=== PATIENT | female | born 1985 | race Two or more races ===

== ENCOUNTER 2016-07-20 17:10 | Emergency (ER) | payer SELFPAY ==
[~2016-07-20] VITALS: Ht 165.1 cm; Wt 79.4 kg
[2016-07-20 18:28] LABS: BILIRUBIN,URINE NEGATIVE (NEG); GLUCOSE,URINE NEGATIVE (NEG); NITRITE,URINE NEGATIVE (NEG); PROTEIN,URINE NEGATIVE (NEG-TRACE)
[2016-07-20 18:40] LABS: BACTERIA,URINE FEW /HPF (0-FEW); RBC,URINE 0 /HPF (0-2); SQUAMOUS EPITHELIAL CELL,UR MOD /LPF
[2016-07-20 18:45] LABS: BASO % 1 % (0-3); EOS % 3 % (0-3); HEMATOCRIT 38.2 % (36.0-47.0); HEMOGLOBIN 12.9 g/dL (12.0-15.5); LYMPH # 3.1 x10^3/uL (1.0-4.8); LYMPH % 55 % (24-48); MEAN CORPUSCULAR HEMOGLOBIN 29 pg (25-35); MEAN CORPUSCULAR HGB CONC 34 g/dL (31-37); MEAN CORPUSCULAR VOLUME 87 fL (79-100); MONO % 9 % (0-9); NEUT % 32 % (31-73); PLATELET COUNT 257 x10^3/uL (140-400); RED BLOOD COUNT 4.39 x10^6/uL (3.50-5.40); WHITE BLOOD COUNT 5.5 x10^3/uL (4.0-11.0)
[2016-07-20] MEDS ORDERED: IV NORMAL SALINE 1000ML BAG 1,000 ML IV ONE (18:45)
[2016-07-20 19:03] LABS: CALCIUM 8.8 mg/dL (8.5-10.1); CREATININE 0.9 mg/dL (0.6-1.0); POTASSIUM 3.9 mmol/L (3.5-5.1)
[2016-07-20 19:09] LABS: ALBUMIN 3.6 g/dL (3.4-5.0); MAGNESIUM 1.9 mg/dL (1.8-2.4); TOTAL BILIRUBIN 0.3 mg/dL (0.2-1.0); TOTAL PROTEIN 7.1 g/dL (6.4-8.2)
[2016-07-20 19:40] VITALS: BP 117/76
[2016-07-20] MEDS ORDERED: NITR100C62 PO (19:43)
--- NOTE | 2016-07-20 19:44 | PHYS DOC ---
Past Medical History Past Medical History: Anxiety, Hypothyroid Additional Past Medical Histor: TACHYCARDIA Past Surgical History: , Tubal ligation Additional Past Surgical Histo: UNKNOWN SX TO LOOK FOR PULMONARY HTN Alcohol Use: Rarely Drug Use: None Adult General Chief Complaint Chief Complaint: NEAR SYNCOPE HPI HPI Patient is a 31 year old female who presents with complaints of lightheadedness for the past 3 days. Patient denies positional symptoms at this time. Patient states that she starts getting very lightheaded at rest. Patient mentioned vertigo symptoms during triage, however patient states that she is having more lightheadedness and feeling like she is going to pass out on my interview. The patient states that she has had history of tachycardia in the past and was on beta tarik medication but stated that she had to be taken off of this due to bradycardia. Patient states that this diagnosis took place in [place]. Patient just recently moved to [place] within the last 3-4 months. Patient does not have a primary physician at this time. Patient states she also has history of anxiety and takes hydroxyzine as needed for symptoms. Patient denies any associated chest pain but states that she has experienced shortness of breath with her symptoms. Patient also states that she feels "shaky all over " at times. Review of Systems Review of Systems Constitutional: Lightheadedness, denies fever or chills [] Eyes: Denies change in visual acuity, redness, or eye pain [] HENT: Denies nasal congestion or sore throat [] Respiratory: Shortness of breath [] Cardiovascular: Near syncope, denies chest pain or edema [] GI: Denies abdominal pain, nausea, vomiting, bloody stools or diarrhea [] : Denies dysuria or hematuria [] Musculoskeletal: Denies back pain or joint pain [] Integument: Denies rash or skin lesions [] Neurologic: Denies headache, focal weakness or sensory changes [] Current Medications Current Medications Current Medications Medications (Trade) Dose Ordered Sig/Bertrand Start Time Stop Time Status Last Admin Dose Admin Sodium Chloride 1,000 ml @ 1,000 mls/hr 1X ONCE 07/20/16 18:45 07/20/16 19:44 DC 07/20/16 18:35 1,000 MLS/HR Allergies Allergies Allergies Coded Allergies Type Severity Reaction Last Updated Verified No Known Drug Allergies 07/20/16 No Physical Exam Physical Exam Constitutional: Alert, afebrile, no acute distress. [] HENT: Normocephalic, atraumatic, bilateral external ears normal, oropharynx moist, no oral exudates, nose normal. [] Eyes: PERRLA, EOMI, conjunctiva normal, no discharge. [] Neck: Normal range of motion, no tenderness, supple, no stridor. [] Cardiovascular:Heart rate regular rhythm, no murmur [] Lungs & Thorax: Bilateral breath sounds clear to auscultation [] Abdomen: Bowel sounds normal, soft, no tenderness, no masses, no pulsatile masses. [] Skin: Warm, dry, no erythema, no rash. [] Back: No tenderness, no CVA tenderness. [] Extremities: No tenderness, no cyanosis, no clubbing, ROM intact, no edema. [] Neurologic: Alert and oriented X 3, normal motor function, normal sensory function, no focal deficits noted. [] Current Patient Data Vital Signs Vital Signs Date Time Temp Pulse Resp B/P (MAP) Pulse Ox O2 Delivery O2 Flow Rate FiO2 07/20/16 19:40 54 19 117/76 (90) 98 Room Air 07/20/16 17:40 98.9 98.9 Lab Values Laboratory Tests Test 07/20/16 16:52 07/20/16 18:10 07/20/16 18:30 POC Urine HCG, Qualitative Hcg negative (Negative) Urine Collection Type Unknown Urine Color Yellow Urine Clarity Clear Urine pH 6.0 Urine Specific Matador 1.025 Urine Protein Negative mg/dL (NEG-TRACE) Urine Glucose (UA) Negative mg/dL (NEG) Urine Ketones (Stick) Negative mg/dL (NEG) Urine Blood Negative (NEG) Urine Nitrite Negative (NEG) Urine Bilirubin Negative (NEG) Urine Urobilinogen Dipstick 1.0 mg/dL (0.2 mg/dL) Urine Leukocyte Esterase Small (NEG) Urine RBC 0 /HPF (0-2) Urine WBC 11-20 /HPF (0-4) Urine Squamous Epithelial Cells Mod /LPF Urine Bacteria Few /HPF (0-FEW) Urine Mucus Mod /LPF White Blood Count 5.5 x10^3/uL (4.0-11.0) Red Blood Count 4.39 x10^6/uL (3.50-5.40) Hemoglobin 12.9 g/dL (12.0-15.5) Hematocrit 38.2 % (36.0-47.0) Mean Corpuscular Volume 87 fL (79-100) Mean Corpuscular Hemoglobin 29 pg (25-35) Mean Corpuscular Hemoglobin Concent 34 g/dL (31-37) Red Cell Distribution Width 13.0 % (11.5-14.5) Platelet Count 257 x10^3/uL (140-400) Neutrophils (%) (Auto) 32 % (31-73) Lymphocytes (%) (Auto) 55 % (24-48) H Monocytes (%) (Auto) 9 % (0-9) Eosinophils (%) (Auto) 3 % (0-3) Basophils (%) (Auto) 1 % (0-3) Neutrophils # (Auto) 1.8 x10^3uL (1.8-7.7) Lymphocytes # (Auto) 3.1 x10^3/uL (1.0-4.8) Monocytes # (Auto) 0.5 x10^3/uL (0.0-1.1) Eosinophils # (Auto) 0.2 x10^3/uL (0.0-0.7) Basophils # (Auto) 0.0 x10^3/uL (0.0-0.2) Sodium Level 142 mmol/L (136-145) Potassium Level 3.9 mmol/L (3.5-5.1) Chloride Level 106 mmol/L (98-107) Carbon Dioxide Level 29 mmol/L (21-32) Anion Gap 7 (6-14) Blood Urea Nitrogen 12 mg/dL (7-20) Creatinine 0.9 mg/dL (0.6-1.0) Estimated GFR (Cockcroft-Gault) 73.0 BUN/Creatinine Ratio 13 (6-20) Glucose Level 94 mg/dL (70-99) Calcium Level 8.8 mg/dL (8.5-10.1) Magnesium Level 1.9 mg/dL (1.8-2.4) Total Bilirubin 0.3 mg/dL (0.2-1.0) Aspartate Amino Transferase (AST) 29 U/L (15-37) Alanine Aminotransferase (ALT) 50 U/L (14-59) Alkaline Phosphatase 52 U/L (46-116) Total Protein 7.1 g/dL (6.4-8.2) Albumin 3.6 g/dL (3.4-5.0) Albumin/Globulin Ratio 1.0 (1.0-1.7) Laboratory Tests 07/20/16 18:30 Laboratory Tests 07/20/16 18:30 EKG EKG Interpreted by me: Heart rate 57, sinus rhythm, normal intervals, normal axis, no acute ST/T-wave abnormalities present [] Radiology/Procedures Radiology/Procedures Not performed [] Course & Med Decision Making Course & Med Decision Making Pertinent Labs and Imaging studies reviewed. (See chart for details) Patient was observed in the emergency department on a ekg monitor with no remarkable events reported. Patient states that she did experience lightheadedness during her emergency department stay on multiple occasions however there was no captured ectopy. Patient was given IV fluids in the emergency department. I did discuss with patient possibility of admission to the hospital for continued monitoring to rule out a tachydysrhythmia. Patient states that she does not want to be admitted the hospital but did agree to follow-up in the next 2 days with cardiology. Patient was found to have urinary tract infection and will be started on Macrobid for treatment. The patient will be referred to Dr. Carter of cardiology for follow-up in 2 days. Advised patient to return emergency department for any worsening symptoms. Patient voiced understanding and in agreement with treatment plan. Dragon Disclaimer Dragon Disclaimer This electronic medical record was generated, in whole or in part, using a voice recognition dictation system. Departure Departure Impression: Primary Impression: Near syncope Additional Impression: Urinary tract infection Disposition: HOME, SELF-CARE Condition: IMPROVED Referrals: NO PCP (PCP) MICHAEL CARTER MD Patient Instructions: Near-Syncope, Urinary Tract Infection Additional Instructions: Follow-up with Dr. Carter of cardiology in 2 days. Return to the emergency department for any worsening symptoms. Scripts Nitrofurantoin Monohyd/M-Cryst (MACROBID 100 MG CAPSULE) 100 Mg Capsule 1 CAP PO BID, #14 CAP Prov: WALDEMAR ENGLISH MD 07/20/16 Problem Qualifiers Additional Impression: Urinary tract infection Urinary tract infection type: site unspecified Hematuria presence: without hematuria Qualified Codes: N39.0 - Urinary tract infection, site not specified WALDEMAR ENGLISH MD Jul 20, 2016 19:44
--- NOTE | 2016-07-21 06:30 | EKG ---
[facility] [address] [place] [address] Test Date: 2016-07-20 Test Time: 18:20:48 Pat Name: AMANDA PATE Department: Room: Gender: F [employer] Gun [employer]: : 1985 Requested By: WALDEMAR ENGLISH Order Number: [id number] Reading MD: Anais Sauceda Measurements Intervals [place] Rate: 57 P: MA: QRS: 12 QRSD: 76 T: 20 QT: 384 QTc: 376 Interpretive Statements SINUS RHYTHM NORMAL EKG RI6.01 Unconfirmed report No previous ECG available for comparison Electronically Signed On 07-24-2016 18:27:03 CDT by Anais Sauceda
== END 2016-07-20 19:49 | disposition home or self-care (01) ==
LOC: ER 17:10
DX: R55 Syncope and collapse (principal); N39.0 Urinary tract infection, site not specified; E03.9 Hypothyroidism, unspecified; F41.9 Anxiety disorder, unspecified; Z98.51 Tubal ligation status; Z98.890 Other specified postprocedural states
CPT/HCPCS: 36415; 80053; 81001; 81025; 83735; 85027; 87086; 93005; 96360; 99285; J7030

== ENCOUNTER 2016-10-29 13:36 | Emergency (ER) | payer SELFPAY ==
[~2016-10-29] VITALS: Ht 165.1 cm; Wt 83.5 kg
[~2016-10-29 13:36] MED LIST: NITR100C62 PO
[2016-10-29 14:05] VITALS: BP 132/85
[2016-10-29] MEDS ORDERED: IBUPROFEN 600 MG TABLET. PO ONE (14:30)
--- NOTE | 2016-10-29 14:32 | PHYS DOC ---
Past Medical History Past Medical History: Anxiety, Hypothyroid Additional Past Medical Histor: bradycardia, tachycardia, pulm HTN resolved, depressed nasal fx Past Surgical History: , Tubal ligation Additional Past Surgical Histo: UNKNOWN SX TO LOOK FOR PULMONARY HTN Alcohol Use: Rarely Drug Use: None Adult General Chief Complaint Chief Complaint: OTHER COMPLAINTS HPI HPI Patient is a 31 year old female presents to the emergency department stating that last night she was holding her daughter and they both fell asleep on the couch's. She states that she went to wake her daughter up and her daughter was startled and accidentally hit her in the nose. Patient states she has a history of a depressed nasal fracture in the past. She states she is having increased pain and swelling since the incident. She has taken Excedrin with minimal relief. Patient states she is unable to take some narcotics as it causes her to have decreased heart rate. Patient denies any bloody nose or discharge. She denies any loss of consciousness. Review of Systems Review of Systems Constitutional: Denies fever or chills [] Eyes: Denies change in visual acuity, redness, or eye pain [] HENT: Denies nasal congestion or sore throat. Complaint of nasal pain Respiratory: Denies cough or shortness of breath [] Cardiovascular: No additional information not addressed in HPI [] GI: Denies abdominal pain, nausea, vomiting, bloody stools or diarrhea [] : Denies dysuria or hematuria [] Musculoskeletal: Denies back pain or joint pain [] Integument: Denies rash or skin lesions [] Neurologic: Denies headache, focal weakness or sensory changes [] Endocrine: Denies polyuria or polydipsia [] Current Medications Current Medications Current Medications Medications (Trade) Dose Ordered Sig/[facility] Start Time Stop Time Status Last Admin Dose Admin Ibuprofen (Motrin) 600 mg 1X ONCE 10/29/16 14:30 10/29/16 14:31 DC 10/29/16 14:37 600 MG Allergies Allergies Allergies Coded Allergies Type Severity Reaction Last Updated Verified No Known Drug Allergies 10/29/16 No Physical Exam Physical Exam Constitutional: Well developed, well nourished, no acute distress, non-toxic appearance. [] HENT: Normocephalic, atraumatic, bilateral external ears normal, oropharynx moist, no oral exudates, nose normal. Bilateral tympanic membranes appear to be normal. Patient with bilateral naris that appeared to be edematous. No bleeding noted. Tenderness noted over the nose area. Eyes: PERRLA, EOMI, conjunctiva normal, no discharge. [] Neck: Normal range of motion, no tenderness, supple, no stridor. [] Cardiovascular:Heart rate regular rhythm, no murmur [] Lungs & Thorax: Bilateral breath sounds clear to auscultation [] Skin: Warm, dry, no erythema, no rash. [] Back: No tenderness Extremities: No tenderness, no cyanosis, no clubbing, ROM intact, no edema. [] Neurologic: Alert and oriented X 3, normal motor function, normal sensory function, no focal deficits noted. [] Psychologic: Affect normal, judgement normal, mood normal. [] Current Patient Data Vital Signs Vital Signs Date Time Temp Pulse Resp B/P (MAP) Pulse Ox O2 Delivery O2 Flow Rate FiO2 10/29/16 14:05 98.8 62 16 98 Room Air 98.8 Lab Values Laboratory Tests Test 10/29/16 14:10 POC Urine HCG, Qualitative Hcg negative (Negative) EKG EKG [] Radiology/Procedures Radiology/Procedures [[facility] [address] [place], [place] [id number] IMAGING REPORT Signed PATIENT: AMANDA PATE ACCOUNT: [id number] : 1985 LOCATION: ER AGE: 31 SEX: F EXAM STATUS: REG ER ORD. PHYSICIAN: CHIQUITA DUFFY APRN REASON: hit in the nose with hand, Hx of fx in the past PROCEDURE: NASAL BONES 3+V Indication injury to the nose. History of fracture. A Mackenzie' view was obtained as well as lateral views of the nasal bone. There is slight deformity of the tip of the nasal bone compatible with a fracture, probably old. No displaced fracture is seen and the nasal spine appears normal DICTATED and SIGNED BY: MELO DELANEY MD DATE: 10/29/16 1952 CC: CHIQUITA DUFFY APRN; NO PCP; NON,STAFF ~ ] Course & Med Decision Making Course & Med Decision Making Pertinent Labs and Imaging studies reviewed. (See chart for details) Patient x-ray identifies old fracture. Patient will be discharged home in stable condition. Recommended Ice packs on 20 minutes and off 20 minutes several times a day. Tylenol or Ibuprofen for pain. Patient will be recommended to followup with ENT, recommended calling or [facility] for followup. Patient agrees with discharge instructions, treatment regimen and followup recommendations. Signs and symptoms to return to emergency department has been provided. All questions and concerns have been answered at patients beside. [] Dragon Disclaimer Dragon Disclaimer This electronic medical record was generated, in whole or in part, using a voice recognition dictation system. Departure Departure Impression: Primary Impression: Nose pain Disposition: HOME, SELF-CARE Condition: STABLE Referrals: NO PCP (PCP) Patient Instructions: Contusion, [id number] Additional Instructions: X-ray identified old fracture Tylenol or Ibuprofen for pain Ice packs on 20 minutes and off 20 minutes several times a day Followup with ENT at either or [facility] Return to emergency department as needed for signs and symptoms that become worse. CHIQUITA DUFFY APRN Oct 29, 2016 14:32
--- NOTE | 2016-10-29 15:02 | RAD ---
Indication injury to the nose. History of fracture. A Mackenzie' view was obtained as well as lateral views of the nasal bone. There is slight deformity of the tip of the nasal bone compatible with a fracture, probably old. No displaced fracture is seen and the nasal spine appears normal
== END 2016-10-29 15:15 | disposition home or self-care (01) ==
LOC: ER 13:36
DX: J34.89 Other specified disorders of nose and nasal sinuses (principal); F41.9 Anxiety disorder, unspecified; E03.9 Hypothyroidism, unspecified; I27.2 Other secondary pulmonary hypertension; W22.8XXA Striking against or struck by other objects, initial encounter; Y93.89 Activity, other specified; Y92.89 Other specified places as the place of occurrence of the external cause; Y99.8 Other external cause status
CPT/HCPCS: 70150; 81025; 99284

== ENCOUNTER 2017-03-28 17:07 | Emergency (ER) | payer SELFPAY ==
[2017-03-28 17:29] LABS: URINE HCG POC HCG NEGATIVE (Negative)
[2017-03-28 18:46] LABS: ADD MAN DIFF? NO
[2017-03-28 18:53] LABS: BASO # 0.1 x10^3/uL (0.0-0.2); BASO % 1 % (0-3); EOS # 0.2 x10^3/uL (0.0-0.7); EOS % 4 % (0-3); HEMATOCRIT 39.6 % (36.0-47.0); HEMOGLOBIN 13.3 g/dL (12.0-15.5); LYMPH # 3.2 x10^3/uL (1.0-4.8); LYMPH % 53 % (24-48); MEAN CORPUSCULAR HEMOGLOBIN 29 pg (25-35); MEAN CORPUSCULAR HGB CONC 34 g/dL (31-37); MEAN CORPUSCULAR VOLUME 87 fL (79-100); MONO # 0.5 x10^3/uL (0.0-1.1); MONO % 7 % (0-9); NEUT # 2.2 x10^3uL (1.8-7.7); NEUT % 35 % (31-73); PLATELET COUNT 292 x10^3/uL (140-400); RED BLOOD COUNT 4.53 x10^6/uL (3.50-5.40); RED CELL DISTRIBUTION WIDTH 13.1 % (11.5-14.5); WHITE BLOOD COUNT 6.1 x10^3/uL (4.0-11.0)
[2017-03-28] MEDS: IOHEXOL 300 MG/ML 100ML VIAL. IV ×2 (19:00)
[2017-03-28] MEDS: IOHEXOL 240 MG/ML 50ML VIAL. PO ×2 (19:00)
[2017-03-28 19:02] LABS: ANION GAP 9 (6-14); BLOOD UREA NITROGEN 16 mg/dL (7-20); BUN/CREATININE RATIO 20 (6-20); CALCIUM 8.9 mg/dL (8.5-10.1); CARBON DIOXIDE 27 mmol/L (21-32); CHLORIDE 103 mmol/L (98-107); CREATININE 0.8 mg/dL (0.6-1.0); GFR 83.7; GLUCOSE 111 mg/dL (70-99); POTASSIUM 3.6 mmol/L (3.5-5.1); SODIUM 139 mmol/L (136-145)
[2017-03-28 19:07] LABS: ALBUMIN 3.5 g/dL (3.4-5.0); ALBUMIN/GLOBULIN RATIO 0.9 (1.0-1.7); ALK PHOS 59 U/L (46-116); ALT (SGPT) 19 U/L (14-59); AST (SGOT) 10 U/L (15-37); LIPASE 397 U/L (73-393); TOTAL BILIRUBIN 0.2 mg/dL (0.2-1.0); TOTAL PROTEIN 7.2 g/dL (6.4-8.2)
[2017-03-28 19:17] LABS: NEG OBC SER NEG; POS OBC SER POS; PREG TEST PT QUAL NEGATIVE (NEG)
== END 2017-03-28 21:40 | disposition home or self-care (01) ==
LOC: ER 17:07
DX: K52.9 Noninfective gastroenteritis and colitis, unspecified (principal); F41.9 Anxiety disorder, unspecified; E03.9 Hypothyroidism, unspecified; I27.20 Pulmonary hypertension, unspecified; F17.210 Nicotine dependence, cigarettes, uncomplicated
CPT/HCPCS: 36415; 74177; 80053; 81025; 83690; 84703; 85025; 99285-25; Q9966; Q9967

== ENCOUNTER → 2017-07-28 | Outpatient (CLI) | payer OTHER | END | disposition home or self-care (01) | LOC: MAMMO 13:13 | DX: R92.8 Other abnormal and inconclusive findings on diagnostic imaging of breast (principal) | CPT/HCPCS: 76641; 77066; G0279 ==

== ENCOUNTER → 2017-08-15 | Outpatient (CLI) | payer OTHER | END | disposition home or self-care (01) | LOC: LAB 12:20 | DX: N92.6 Irregular menstruation, unspecified (principal); E03.9 Hypothyroidism, unspecified; Z87.891 Personal history of nicotine dependence | CPT/HCPCS: 36415; 84702 ==

== ENCOUNTER → 2017-08-19 | Day surgery (SDC) | payer OTHER ==
[~2017-08-19] MED LIST changes: +DESFLURANE 31 TO 60 MINUTES IH; +DEXAMETHASONE SOD PHOS 20 MG/5 ML VIAL. IV; +DEXAMETHASONE SOD PHOS 4 MG/ML VIAL; +KETOROLAC 30 MG/ML INJ FOR OR. INJ; +LIDOCAINE 1% PF 2 ML VIAL. ID; +LIDOCAINE 2% PF Vial for OR 5 ML VIAL.; +MORPHINE SULFATE 2 MG/ML DISP.SYRIN. IV; -NITR100C62 PO; +ONDANSETRON PF 4 MG/2 ML VIAL.; +ONDANSETRON PF 4 MG/2 ML VIAL. IV; +PROCHLORPERAZINE 10 MG/2 ML VIAL. IV; +PROPOFOL 0 ML IV; +PROPOFOL 20 ML IV; +SCOPOLAMINE 1.5MG PATCH. TD; +fentaNYL PF VIAL 100 MCG/2 ML VIAL; +fentaNYL PF VIAL 100 MCG/2 ML VIAL IV; +oxyCODONE/APAP 5/325 1 TAB TABLET PO
[2017-08-19 09:03] LABS: NEG OBC UR NEG; POS OBC UR POS; U PREG PATIENT NEGATIVE (NEG)
[2017-08-19] MEDS: IV RINGERS,LACTATED 1000ML 1,000 ML IV (09:29)
[2017-08-19] MEDS: SCOPOLAMINE 1.5MG PATCH. TD (09:41)
[2017-08-19] MEDS: DEXAMETHASONE SOD PHOS 4 MG/ML VIAL IV (09:42)
[2017-08-19] MEDS: BUPIVACAINE-EPI 0.25%-1:200000 50 ML VIAL. (10:43)
[2017-08-19] MEDS: fentaNYL PF VIAL 100 MCG/2 ML VIAL IV ×2 (11:34→11:52)
[2017-08-19] MEDS: oxyCODONE/APAP 5/325 1 TAB TABLET PO (12:19)
== END | disposition home or self-care (01) ==
LOC: SURG 08:30
DX: D24.1 Benign neoplasm of right breast (principal); N60.31 Fibrosclerosis of right breast; N60.41 Mammary duct ectasia of right breast; N60.81 Other benign mammary dysplasias of right breast; Z88.8 Allergy status to other drugs, medicaments and biological substances; J45.909 Unspecified asthma, uncomplicated; Z98.51 Tubal ligation status; F43.10 Post-traumatic stress disorder, unspecified; E03.9 Hypothyroidism, unspecified; F41.9 Anxiety disorder, unspecified; F32.9 Major depressive disorder, single episode, unspecified; Z72.89 Other problems related to lifestyle; Z98.890 Other specified postprocedural states; F17.210 Nicotine dependence, cigarettes, uncomplicated
CPT/HCPCS: 19120; 81025; 88305; J0690; J1100; J1885; J2001; J2405; J2704; J3010